=== PATIENT | female | born 1955 | race Hispanic/Latino ===

== ENCOUNTER 2022-07-26 11:44 | Outpatient (CLI) | payer MEDICARE | END 2022-07-26 11:45 | disposition home or self-care (01) | LOC: CSHMAMMO 11:44 | PROVIDERS: ATTEND Family Medicine | DX: Z12.31 Encounter for screening mammogram for malignant neoplasm of breast (principal); Z80.3 Family history of malignant neoplasm of breast | CPT/HCPCS: 77063; 77067 ==

== ENCOUNTER 2023-08-05 10:48 | Outpatient (CLI) | payer MEDICARE | END 2023-08-05 10:49 | disposition home or self-care (01) | LOC: CSHMAMMO 10:48 | PROVIDERS: ATTEND Family Medicine | DX: Z12.31 Encounter for screening mammogram for malignant neoplasm of breast (principal); Z80.3 Family history of malignant neoplasm of breast | CPT/HCPCS: 77063; 77067 ==

== ENCOUNTER 2024-08-19 09:28 | Outpatient (CLI) | payer MEDICARE | END 2024-08-19 09:29 | disposition home or self-care (01) | LOC: CSHMAMMO 09:28 | PROVIDERS: ATTEND Family Medicine | DX: Z12.31 Encounter for screening mammogram for malignant neoplasm of breast (principal); Z80.3 Family history of malignant neoplasm of breast | CPT/HCPCS: 77067 ==

== ENCOUNTER 2025-09-07 12:46 | Outpatient (CLI) | payer MEDICARE | END 2025-09-07 12:47 | disposition home or self-care (01) | LOC: CSHMAMMO 12:46 | PROVIDERS: ATTEND Family Medicine | DX: Z12.31 Encounter for screening mammogram for malignant neoplasm of breast (principal); Z80.3 Family history of malignant neoplasm of breast | CPT/HCPCS: 77063; 77067 ==